=== PATIENT | female | born 1975 | race Caucasian/White ===

== ENCOUNTER → 2020-07-02 | Outpatient (CLI) | payer BC, OTHER ==
[~2020-07-02] MED LIST: ALBU90AE INH; CHOL20002 PO; CLON-364 PO; ESCI10TA10 PO; ESCI20TA10 PO; IBUP200C8 PO
[2020-07-02 11:01] LABS: BASOPHILS # (AUTO) 0.03 x10^3/uL (0-0.1); BASOPHILS % (AUTO) 1 % (0-1); EOSINOPHILS # (AUTO) 0.11 x10^3/uL (0-0.4); EOSINOPHILS % (AUTO) 2 % (1-7); LYMPHOCYTES # (AUTO) 1.82 x10^3/uL (1-3.4); LYMPHOCYTES % (AUTO) 27 % (22-44); MD NO; MEAN CORPUSCULAR HEMOGLOBIN 29.9 pg (27.0-34.8); MEAN CORPUSCULAR HGB CONC 33.6 g/dL (32.4-35.8); MEAN PLATELET VOLUME 8.1 fL (7.4-10.4); MONOCYTES # (AUTO) 0.35 x10^3/uL (0.2-0.8); MONOCYTES % (AUTO) 5 % (2-9); NEUTROPHILS # (AUTO) 4.34 x10^3/uL (1.8-6.8); NEUTROPHILS % (AUTO) 65 % (42-75); PLATELET COUNT 324 x10^3/uL (130-400); RED BLOOD COUNT 4.98 x10^6/uL (3.82-5.3)
[2020-07-02 11:13] LABS: ALANINE AMINOTRANSFERASE 30 U/L (12-78); ALBUMIN 3.9 g/dL (3.4-5.0); ANION GAP 4 mmol/L (5-15); CALCIUM 9.2 mg/dL (8.5-10.1); CHLORIDE 110 mmol/L (98-107); CREATININE 0.81 mg/dL (0.55-1.02)
[2020-07-02 11:17] LABS: ALKALINE PHOSPHATASE 66 U/L (45-117); BILIRUBIN,TOTAL 0.3 mg/dL (0.2-1.0); TOTAL PROTEIN 7.5 g/dL (6.4-8.2)
[2020-07-02 11:46] LABS: MICROSCOPIC NOT IND
== END | disposition home or self-care (01) ==
LOC: STAR 10:09
PROVIDERS: ATTEND Obstetrics & Gynecology Gynecology
DX: Z01.818 Encounter for other preprocedural examination (principal); R10.2 Pelvic and perineal pain; N94.10 Unspecified dyspareunia
CPT/HCPCS: 36415; 80053; 81003; 84703; 85025

== ENCOUNTER 2020-07-07 06:04 | Emergency (ER) | payer OTHER ==
[~2020-07-07] VITALS: Ht 154.9 cm; Wt 88.0 kg
--- NOTE | 2020-07-07 06:38 | NUR ---
DR. CERRATO AT BEDSIDE EVALUATING PT
--- NOTE | 2020-07-07 06:40 | NUR ---
44 Y/O FEMALE PRESENTS TO THE ER C/O CHEST "PRESSURE", SUBSTERNAL, NONRADIATING THAT STARTED SUDDENLY AROUND 0500, WHEN SHE WOKE UP. THE PAIN PERSISTED FOR APPROX AN HOUR, 6/10. ACCOMPANIED WITH NAUSEA, DIZZINESS AND DIAPHORESIS. PT REPORTS AFTER ARRIVING TO THE ER, THE PAIN WENT FROM A 6/10 TO A 3/10. PT DOES NOT APPEAR TO BE IN DISTRESS. ALL MONITORING EQUIPMENT APPLIED. NSR ON THE MONITOR, NO ECTOPY OR ST CHANGES PRESENT. PT DENIES ANY PMHX, NO ETOH AND NON SMOKER.
[2020-07-07 06:45] VITALS: BP 128/64
[2020-07-07] MEDS ORDERED: MAALOX/HYOSCYAMINE/LIDOCAINE 45 ML BTL ONE (06:50)
--- NOTE | 2020-07-07 06:52 | NUR ---
PT MEDICATED PER EMAR. 5 RIGHTS ADDRESSED. PT FEELS THOUGH SHE DOES NOT NEED THE ZOFRAN AT THIS TIME. MEDICATION HELD LAB AT BEDSIDE. WARM BLANKETS PROVIDED.
[2020-07-07] MEDS ORDERED: MAALOX/HYOSCYAMINE/LIDOCAINE 45 ML BTL PO ONE (07:00)
[2020-07-07] MEDS ORDERED: ONDANSETRON ODT 4 MG PO ONE (07:00)
[2020-07-07 07:39] LABS: BASOPHILS # (AUTO) 0.03 x10^3/uL (0-0.1); BASOPHILS % (AUTO) 0 % (0-1); EOSINOPHILS # (AUTO) 0.07 x10^3/uL (0-0.4); EOSINOPHILS % (AUTO) 1 % (1-7); LYMPHOCYTES # (AUTO) 1.38 x10^3/uL (1-3.4); LYMPHOCYTES % (AUTO) 20 % (22-44); MD NO; MEAN CORPUSCULAR HEMOGLOBIN 29.5 pg (27.0-34.8); MEAN CORPUSCULAR HGB CONC 32.9 g/dL (32.4-35.8); MEAN CORPUSCULAR VOLUME 89.5 fL (80-100); MEAN PLATELET VOLUME 7.9 fL (7.4-10.4); MONOCYTES # (AUTO) 0.33 x10^3/uL (0.2-0.8); MONOCYTES % (AUTO) 5 % (2-9); NEUTROPHILS # (AUTO) 5.12 x10^3/uL (1.8-6.8); NEUTROPHILS % (AUTO) 74 % (42-75); PLATELET COUNT 333 x10^3/uL (130-400); RED BLOOD COUNT 4.69 x10^6/uL (3.82-5.3); RED CELL DISTRIBUTION WIDTH 14.5 % (9.6-15.2)
[2020-07-07 07:50] LABS: ALBUMIN 3.5 g/dL (3.4-5.0); ANION GAP 8 mmol/L (5-15); CALCIUM 8.1 mg/dL (8.5-10.1); CHLORIDE 110 mmol/L (98-107)
[2020-07-07 07:55] LABS: ALANINE AMINOTRANSFERASE 22 U/L (12-78); ALKALINE PHOSPHATASE 60 U/L (45-117); BILIRUBIN,TOTAL 0.2 mg/dL (0.2-1.0); CREATININE 0.78 mg/dL (0.55-1.02); TOTAL PROTEIN 6.6 g/dL (6.4-8.2)
--- NOTE | 2020-07-07 08:00 | NUR ---
TASK RN NOTE: PT AMBULATES WELL INDEPENDENTLY TO BATHROOM. NAD NOTED.
== END 2020-07-07 09:18 | disposition home or self-care (01) ==
LOC: ED 06:36
DX: R10.84 Generalized abdominal pain (principal); R19.7 Diarrhea, unspecified; R07.9 Chest pain, unspecified
CPT/HCPCS: 36415; 71045; 80053; 83690; 84703; 85025; 93005; 99285

== ENCOUNTER → 2020-07-07 | Outpatient (CLI) | payer OTHER | END | disposition home or self-care (01) | LOC: STAR 09:25 | PROVIDERS: ATTEND Anesthesiology | DX: Z20.828 Contact with and (suspected) exposure to other viral communicable diseases (principal) | CPT/HCPCS: 36415; 87635 ==

== ENCOUNTER 2021-01-28 12:18 | Emergency (ER) | payer MEDICAID, OTHER ==
[~2021-01-28] VITALS: Ht 154.9 cm; Wt 91.7 kg
--- NOTE | 2021-01-28 12:35 | NUR ---
PT AMBULATORY TO ROOM FROM TRIAGE.
--- NOTE | 2021-01-28 12:54 | NUR ---
BP CUFF, PULSE OX IN PLACE. PT STATES SX FOR SIX MONTHS, WORSENING OVER PAST TWO WEEKS. PT STATES HAVING DIFFICULTY GETTING APPT FOR NEUROLOGIST. REFERRED BUT NO APPT YET. HX OF CHILDHOOD SEIZURES, STOPPED AROUND AGE 12. AT BS. CALL LIGHT WITHIN REACH, WARM BLANKET PROVIDED.
--- NOTE | 2021-01-28 13:30 | NUR ---
REPORT FROM JANET. PT RESTING.
--- NOTE | 2021-01-28 14:00 | NUR ---
ct complete. awaiting results
[2021-01-28 14:07] LABS: BASOPHILS % (AUTO) 1 % (0-1); EOSINOPHILS % (AUTO) 1 % (1-7); LYMPHOCYTES % (AUTO) 31 % (22-44); MEAN CORPUSCULAR HEMOGLOBIN 30.2 pg (27.0-34.8); MEAN CORPUSCULAR HGB CONC 34.1 g/dL (32.4-35.8); MONOCYTES % (AUTO) 6 % (2-9); NEUTROPHILS % (AUTO) 62 % (42-75); PLATELET COUNT 338 x10^3/uL (130-400); RED BLOOD COUNT 4.21 x10^6/uL (3.82-5.3)
[2021-01-28 14:11] LABS: ALANINE AMINOTRANSFERASE 27 U/L (12-78); ALBUMIN 3.9 g/dL (3.4-5.0); ANION GAP 5 mmol/L (5-15); CALCIUM 8.9 mg/dL (8.5-10.1); CHLORIDE 109 mmol/L (98-107); CREATININE 0.73 mg/dL (0.55-1.02)
[2021-01-28 14:15] LABS: ALKALINE PHOSPHATASE 63 U/L (45-117); BILIRUBIN,TOTAL 0.2 mg/dL (0.2-1.0); TOTAL PROTEIN 7.1 g/dL (6.4-8.2)
[2021-01-28 14:24] LABS: MD NO
--- NOTE | 2021-01-28 15:01 | NUR ---
Patient given discharge instructions and they have confirmed that they understand the instructions. Patient ambulatory with steady gait.
[2021-01-28 15:02] VITALS: BP 126/71
== END 2021-01-28 15:03 | disposition home or self-care (01) ==
LOC: ED 14:59
DX: G40.909 Epilepsy, unspecified, not intractable, without status epilepticus (principal); R11.0 Nausea; R51.9 Headache, unspecified; J45.909 Unspecified asthma, uncomplicated
CPT/HCPCS: 36415; 70450; 80053; 84443; 84703; 85025; 99284